=== PATIENT | male | born 1985 | race Asian ===

== ENCOUNTER 2017-03-17 01:53 | Emergency (ER) | payer OTHER ==
[~2017-03-17] VITALS: Ht 172.7 cm; Wt 63.5 kg
[2017-03-17 01:55] VITALS: BP_SYST 138
[2017-03-17 02:23] LABS: BASOPHILS # (AUTO) 0.2 K/uL (0.0-0.2); BASOPHILS % (AUTO) 1.9 % (0.0-2.0); EOSINOPHILS # (AUTO) 0.4 K/uL (0.0-0.4); EOSINOPHILS % (AUTO) 4.3 % (0.0-4.0); HEMATOCRIT 47.3 % (36-54); HEMOGLOBIN 15.8 g/dL (14.0-18.0); LYMPHOCYTES # (AUTO) 2.6 K/uL (1.0-5.5); LYMPHOCYTES % (AUTO) 29.5 % (20.5-51.5); MEAN CORPUSCULAR HEMOGLOBIN 31 pg (27-31); MEAN CORPUSCULAR HGB CONC 33 % (32-36); MEAN CORPUSCULAR VOLUME 92 fL (79.0-98.0); MONOCYTES # (AUTO) 0.8 K/uL (0.0-1.0); NEUTROPHILS % (AUTO) 55.3 % (40.0-70.0); PLATELET COUNT (AUTO) 277 K/uL (130-430); RED BLOOD CELL COUNT(AUTO) 5.12 MIL/uL (4.2-6.2); RED CELL DISTRIBUTION WIDTH 12.5 % (9.0-15.0)
[2017-03-17 02:37] LABS: ALANINE AMINOTRANSFERASE 27 U/L (12-78); ALBUMIN 3.8 g/dL (3.4-4.8); ANION GAP 3 (5-15); ASPARTATE AMINOTRANSFERASE 15 U/L (10-37); CALCIUM 8.9 mg/dL (8.4-11.0); CHLORIDE 104 mmol/L (98-107); CREATININE 1.41 mg/dL (0.55-1.30); GLUCOSE 95 mg/dL (70-99); POTASSIUM 3.7 mmol/L (3.5-5.1); SODIUM SERUM 139 mmol/L (136-145); TOTAL BILIRUBIN 0.5 mg/dL (0.0-1.0); TOTAL PROTEIN, SERUM 7.4 g/dL (6.4-8.3); UREA NITROGEN, BLOOD 16 mg/dL (8-21)
[2017-03-17 02:39] LABS: GFR AFRICAN AMERICAN 75 mL/min (>90)
[2017-03-17 02:42] LABS: BILIRUBIN,URINE NEGATIVE (NEGATIVE); BLOOD, URINE NEGATIVE (NEGATIVE); CLARITY/URINE CLEAR (CLEAR); COLOR,URINE YELLOW (YELLOW); GLUCOSE,URINE NEGATIVE (NEGATIVE); KETONES,URINE NEGATIVE (NEGATIVE); LEUKOCYTE ESTERASE ,URINE TRACE (NEGATIVE); NITRITE, URINE NEGATIVE (NEGATIVE); PROTEIN URINE 1+ (NEGATIVE); UROBILINOGEN,URINE 0.2 (0.2-1.0)
[2017-03-17 02:53] LABS: BACTERIA,URINE FEW /HPF (None Seen); RBC,URINE 0-3 /HPF (0-3)
[2017-03-17 02:54] LABS: BARBITURATE, URINE NEGATIVE (NEG <=200); MUCUS,URINE 1+ /LPF (None Seen); URINE AMPHETAMINE POSITIVE (NEG <=500)
[2017-03-17 02:55] LABS: BENZODIAZEPINE, URINE NEGATIVE (NEG <=150); CANNABINOID, URINE NEGATIVE (NEG <=50); COCAINE, URINE NEGATIVE (NEG <=150); METHAMPHETAMINES SCREEN,URINE POSITIVE (NEG <=500); OPIATE, URINE NEGATIVE (NEG <=100); PHENCYCLIDINE SCREEN,URINE NEGATIVE (NEG <=25); UR TRICYCLIC ANTIDEPRESSANTS NEGATIVE (NEG <=300); URINE METHADONE NEGATIVE (NEG <=200); URINE OXYCODONE SCREEN NEGATIVE (NEG <=100); URINE PROPOXYPHENE SCREEN NEGATIVE (NEG <=300)
[2017-03-17 03:26] VITALS: BP_SYST 138
== END 2017-03-17 03:25 | disposition home or self-care (01) ==
LOC: SED 01:53
DX: R07.89 Other chest pain (principal); F15.10 Other stimulant abuse, uncomplicated; F17.200 Nicotine dependence, unspecified, uncomplicated
CPT/HCPCS: 36415; 80053; 80307; 81000-TC; 84484; 85025; 87086; 93005; 99285

== ENCOUNTER 2023-11-26 02:07 | Emergency (ER) | payer MEDICAID, OTHER ==
[~2023-11-26] VITALS: Ht 172.7 cm; Wt 72.6 kg
[2023-11-26 02:14] VITALS: BP_SYST 154; PULSE 95; RESP 16; TEMP 97.4; O2SAT 99
[2023-11-26] MEDS ORDERED: ACETAMINOPHEN 500 MG TABLET PO ONE (02:15)
[2023-11-26] MEDS ORDERED: KETOROLAC TROMETHAMINE 15 MG VIAL IVP ONE (02:15)
[2023-11-26] MEDS ORDERED: IBUP-1969 PO (02:28)
[2023-11-26] MEDS ORDERED: ACET-2634 PO (02:28)
[2023-11-26 03:36] LABS: ANION GAP 6 (5-15); CALCIUM 8.8 mg/dL (8.4-11.0); CARBON DIOXIDE 29 mmol/L (23-29); CHLORIDE 106 mmol/L (98-107); CREATININE 1.08 mg/dL (0.55-1.30); GFR AFRICAN AMERICAN 98 mL/min (>90); GLUCOSE 121 mg/dL (74-106); POTASSIUM 3.8 mmol/L (3.5-5.1); SODIUM SERUM 141 mmol/L (136-145); UREA NITROGEN, BLOOD 14 mg/dL (8-21)
[2023-11-26 03:42] LABS: ALANINE AMINOTRANSFERASE 51 U/L (12-78); ALBUMIN 3.4 g/dL (3.4-4.8); ASPARTATE AMINOTRANSFERASE 23 U/L (10-37); BILIRUBIN,DIRECT 0.1 mg/dL (0.0-0.3); TOTAL BILIRUBIN 0.2 mg/dL (0.0-1.0); TOTAL PROTEIN, SERUM 6.9 g/dL (6.4-8.3)
[2023-11-26 03:44] LABS: GFR NON AFRICAN-AMERICAN 81 mL/min (>90)
[2023-11-26 03:48] LABS: BASOPHILS % (AUTO) 0.4 % (0.0-2.0); EOSINOPHILS # (AUTO) 0.2 K/uL (0.0-0.4); EOSINOPHILS % (AUTO) 2.9 % (0.0-4.0); HEMATOCRIT 43.3 % (36-54); HEMOGLOBIN 14.6 g/dL (14.0-18.0); LYMPHOCYTES # (AUTO) 2.4 K/uL (1.0-5.5); LYMPHOCYTES % (AUTO) 31.4 % (20.5-51.5); MEAN CORPUSCULAR HEMOGLOBIN 31 pg (27-31); MEAN CORPUSCULAR HGB CONC 34 % (32-36); MEAN CORPUSCULAR VOLUME 93 fL (79.0-98.0); MONOCYTES # (AUTO) 0.5 K/uL (0.0-1.0); MONOCYTES % (AUTO) 7.3 % (1.7-9.3); NEUTROPHILS # (AUTO) 4.4 K/uL (1.8-7.7); PLATELET COUNT (AUTO) 284 K/uL (130-430); RED BLOOD CELL COUNT(AUTO) 4.68 MIL/uL (4.2-6.2); RED CELL DISTRIBUTION WIDTH 13.8 % (9.0-15.0); WHITE BLOOD COUNT (AUTO) 7.6 K/uL (4.8-10.8)
[2023-11-26 04:47] VITALS: BP_SYST 140; PULSE 75; RESP 16; TEMP 97.4; O2SAT 99
== END 2023-11-26 04:47 | disposition home or self-care (01) ==
LOC: SED 02:07
DX: R07.89 Other chest pain (principal); R03.0 Elevated blood-pressure reading, without diagnosis of hypertension; F17.210 Nicotine dependence, cigarettes, uncomplicated; F15.10 Other stimulant abuse, uncomplicated; Z79.899 Other long term (current) drug therapy
CPT/HCPCS: 99285; 96374; 71045; 80076; 80048; 83880; 85025; 84484; 36415; 93005; J1885